=== PATIENT | female | born 1975 | race Asian ===

== ENCOUNTER 2018-04-29 01:57 | Emergency (ER) | payer OTHER ==
[~2018-04-29] VITALS: Ht 154.9 cm; Wt 69.8 kg
[2018-04-29 02:05] VITALS: BP 163/83; PULSE 84; RESP 20; Ht 154.9 cm; Wt 69.8 kg
--- NOTE | 2018-04-29 02:32 | ERD ---
ER Documentation Chief Complaint Chief Complaint DYSURIA SINCE LAST NIGHT. HPI This is a 43-year-old female who presents emergency department with complaints of suprapubic pain, dysuria. Stated that she feels like that she is having a UTI. Denies vaginal discharge, vaginal bleeding. Stated that she is not sexually active. LMP: 04/11/2018. M1. Denies headache, head injury, loss of consciousness, dizziness, neck pain, neck stiffness, throat pain, difficulty swallowing, difficulty breathing lying flat, shoulder pain, chest pain, back pain, abdominal pain, nausea, vomiting, constipation, diarrhea, or possibility being , loss of bowel and bladder control, trauma, injury, falls, difficulty walking due to pain, numbness or tingling sensation, calf pain, recent travel, recent major surgery in the last 3 weeks, calf pain, recent long travel, recent exposure to any illness, recent antibiotic use in the last 3 months, fever, chills, seizures. Past medical history: Hypertension. Medication: Losartan. Surgical history: Social: Denies smoking, use of alcoholic beverages, use of illegal drugs. ROS All systems reviewed and are negative except as per history of present illness. Medications Home Meds Active Scripts Phenazopyridine Hcl* (Pyridium*) 100 Mg Tab, 100 MG PO TID PRN for URINARY PAIN, #8 TAB Prov:PASILABAN,KLAR F 04/29/18 Cephalexin* (Keflex*) 500 Mg Capsule, 500 MG PO TID for 7 Days, CAP Prov:PASILABAN,KLAR F 04/29/18 Allergies Allergies: Coded Allergies: Penicillins (Verified Allergy, Mild, ITCHING, 04/29/18) tetracycline (Verified Allergy, Mild, PALPITATIONS, 04/29/18) Uncoded Allergies: LATEX (Allergy, Mild, ITCHING, RASH, 03/22/08) SHELLFISH (Allergy, Mild, ITCHING, 03/22/08) PMhx/Soc History of Surgery: Yes () Hx Alcohol Use: No Hx Substance Use: No Hx Tobacco Use: No Physical Exam Vitals Vital Signs Date Temp Pulse Resp B/P (MAP) Pulse Ox O2 O2 Flow FiO2 Time Delivery Rate 04/29/18 97.2 84 20 163/83 97 02:05 (109) Physical Exam Const: No acute distress Head: Atraumatic Eyes: Normal Conjunctiva ENT: Normal External Ears, Nose and Mouth. Neck: Full range of motion. No meningismus. Resp: Clear to auscultation bilaterally Cardio: Regular rate and rhythm, no murmurs Abd: Soft, non tender, non distended. Normal bowel sounds. Negative Brandt sign. Negative Yi sign (heel jar test). Negative psoas sign. Negative Rovsing sign. Able to jump twice without developing lower abdominal pain. Skin: No petechiae or rashes Back: No midline or flank tenderness. No CVA tenderness. Ext: No cyanosis, or edema Neur: Awake and alert. No neurological deficits. Psych: Normal Mood and Affect Results 24 hrs Laboratory Tests Test 04/29/18 02:30 Urine Color YELLOW Urine Clarity CLOUDY Urine pH 7.0 Urine Specific [place] 1.010 Urine Ketones NEGATIVE mg/dL Urine Nitrite NEGATIVE mg/dL Urine Bilirubin NEGATIVE mg/dL Urine Urobilinogen NEGATIVE mg/dL Urine Leukocyte Esterase 3+ Hao/ul Urine Microscopic RBC 31 /HPF Urine Microscopic WBC > 182 /HPF Urine Squamous Epithelial Cells FEW /HPF Urine Amorphous Crystals FEW /HPF Urine Bacteria FEW /HPF Urine Hemoglobin 2+ mg/dL Urine Glucose NEGATIVE mg/dL Urine Total Protein 1+ mg/dl Urine Test NEGATIVE Procedures/MDM Diagnostic tests: HCG urine: Negative. Urinalysis: UTI. Culture urine: Sent. Treatment: Not applicable. Re-evaluation: No episode of emesis here in the emergency department. Denies abdominal pain. No CVA tenderness. Differential diagnosis I have low suspicion for pancreatitis, cholecystitis, diverticulitis, diverticulitis with abscess, appendicitis, bowel obstruction, nephrolithiasis, pyelonephritis, obstructing kidney stones, septic stone, sepsis, severe dehydration, ovarian torsion, ovarian cyst rupture, hemorrhaging. Final diagnosis: UTI. Stated that she was prescribed Keflex when she had a UTI before and she has no reactions in this. Prescription: Keflex. Pyridium. Follow-up with PCP in the next 24-48 hours. Come back here in the emergency department for any new symptoms or any worsening symptoms. All questions and concerns were answered. Patient and family members verbalized understanding and agreed with plan of care. Hemodynamically stable on discharge. Departure Diagnosis: Primary Impression: Dysuria Additional Impression: UTI (urinary tract infection) Condition: Stable Additional Instructions: Follow-up with PCP in the next 24-48 hours. Come back here in the emergency department for any new symptoms or any worsening symptoms. ROSENDA DELAROSA Apr 29, 2018 02:32
[2018-04-29] MEDS ORDERED: PHEN-537 PO (03:35)
[2018-04-29] MEDS ORDERED: CEPH-443 PO (03:35)
== END 2018-04-29 03:42 | disposition home or self-care (01) ==
LOC: FTE 01:57
DX: N39.0 Urinary tract infection, site not specified (principal); I10 Essential (primary) hypertension; Z91.040 Latex allergy status
CPT/HCPCS: 81001; 84703; 87086; 99283